=== PATIENT | male | born 1965 | race Caucasian/White ===

== ENCOUNTER → 2021-04-20 | Outpatient (CLI) | payer OTHER ==
--- NOTE | 2021-04-21 02:41 | MR ---
EXAMINATION TYPE: MR shoulder RT wo con DATE OF EXAM: 04/20/2021 COMPARISON: None HISTORY: Right shoulder pain with limited movement for 5 months Multiplanar multiecho imaging of the right shoulder without contrast. There is some hypertrophic spurring at the AC joint with subacromial impingement. There is shoulder j oint effusion. There is subdeltoid effusion. There is full-thickness tear of the supraspinatus tendon with partial retraction. There is fluid around the biceps tendon. Subscapularis tendon is intact. Th ere are some patchy edema in the anterior aspect of the humeral head. There is no fracture line. The glenoid kassandra appear intact. IMPRESSION: Large full-thickness tear of the supraspinatus tendon. Moderate shoulder joint effusion and subdeltoi d effusion consistent with synovitis. No fracture seen. Subchondral edema in the anterior humeral hea d.
== END | disposition home or self-care (01) ==
LOC: RADMRIMAIN 18:35
PROVIDERS: ATTEND Family Medicine
DX: M75.111 Incomplete rotator cuff tear or rupture of right shoulder, not specified as traumatic (principal); M25.411 Effusion, right shoulder

== ENCOUNTER → 2021-06-28 | Outpatient (CLI) | payer OTHER ==
--- NOTE | 2021-06-28 15:48 | XR ---
EXAMINATION TYPE: XR chest 2V DATE OF EXAM: 06/28/2021 COMPARISON: NONE TECHNIQUE: PA and lateral views submitted. HISTORY: Preop FINDINGS: The lungs are clear and there is no pneumothorax, pleural effusion, or focal pneumonia. Heart size normal. No overt failure. Biapical pleural thickening. Hypertrophic and degenerative changes of the s pine. IMPRESSION: 1. No acute process.
[2021-06-28 23:00] LABS: Basophils # (A) 0.05 X 10*3/uL (0.00-0.10); Basophils % (A) 0.6 %; Eosinophils # (A) 0.06 X 10*3/uL (0.04-0.35); Eosinophils % (A) 0.8 %; HGB 16.3 g/dL (13.0-17.0); Immature Grans, Automated 0.3 %; Lymphocytes # (A) 2.33 X 10*3/uL (0.90-5.00); Lymphocytes % (A) 29.2 %; MCH 30.5 pg (27.0-32.0); MCHC 32.6 g/dL (32.0-37.0); MCV 93.5 fL (80.0-97.0); Mean Platelet Volume 9.3 fL (9.5-12.2); Monocytes # (A) 0.63 X 10*3/uL (0.20-1.00); Monocytes % (A) 7.9 %; NRBC Per 100 WBC 0 /100 WBCS (0.0-0.0); Neutrophils % (A) 61.2 %; Platelet Count 328 X 10*3/uL (140-440); RBC 5.35 X 10*6/uL (4.40-5.60); RDW 11.9 % (11.5-14.5); WBC 7.99 X 10*3/uL (4.50-10.00)
[2021-06-28 23:05] LABS: African American GFR (CKD) 111.8 (60.0-200.0); Anion Gap 14.5 mmol/L (10.00-18.00); BUN/Creat Ratio 17.56 Ratio (12.00-20.00); Blood Urea Nitrogen 15.8 mg/dL (9.0-27.0); Calcium 9.6 mg/dL (8.7-10.3); Carbon Dioxide 23.5 mmol/L (20.0-27.5); Non-African American GFR(CKD) 96.5 (60.0-200.0); Potassium 4.1 mmol/L (3.5-5.5)
== END | disposition home or self-care (01) ==
LOC: LABPAT 14:50
PROVIDERS: ATTEND Orthopaedic Surgery
DX: Z01.812 Encounter for preprocedural laboratory examination (principal); M75.41 Impingement syndrome of right shoulder
CPT/HCPCS: 36415; 71046; 80048; 85025; 93005

== ENCOUNTER 2021-07-19 06:01 | Day surgery (SDC) | payer OTHER ==
[2021-07-15 15:24] VITALS: BMI 28.7
--- NOTE | 2021-07-18 13:04 | HP ---
HISTORY AND PHYSICAL CHIEF COMPLAINT: Right shoulder pain. 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 It has worsened recently. He is having pain with overhead use and at night. He has tried activity modifications along with oral steroids without much relief. He has also tried anti-inflammatories. He notes daily pain that limits him. PAST MEDICAL HISTORY: Significant for anxiety, depression, and arthritis. PAST SURGICAL HISTORY: Significant for kidney stone removal and tonsillectomy. CURRENT MEDICATIONS: Ibuprofen and Tylenol. He denies drug allergies. FAMILY HISTORY: Negative. SOCIAL HISTORY: Negative for current tobacco or alcohol use. REVIEW OF SYSTEMS: 16-point review of systems otherwise reviewed and is noncontributory. PHYSICAL EXAMINATION: On examination, the patient is approximately 5 foot 10, 200 pounds of endomorphic habitus. HEENT exam is nonfocal. NECK is supple. On examination of his right shoulder, he is tender about the anterior subacromial space. He has moderate subacromial crepitus. Active range of motion. Forward elevation 140 degrees, external rotation, arm at side 45 degrees, internal rotation to L2. Motor strength 4- over 5 for abduction and external rotation. Impingement test, Neer test, and Speed test are positive. His distal neurovascular exam appears intact in the right upper extremity. X-rays of the right shoulder obtained in the office show a cystic appearance of the greater tuberosity along with a type 2 acromion. MRI report right shoulder shows a full-thickness tear of the supraspinatus with some retraction. There is also fluid surrounding the biceps. IMPRESSION: 1. Right rotator cuff tear-symptomatic. 2. Right proximal bicipital tendinosis. RECOMMENDATIONS: I talked to the patient at length regarding his condition along with treatment options. At this point, he is quite symptomatic and limited because of pain despite previous conservative measures. After thorough discussion, he opts to proceed with surgery. We will plan to proceed with arthroscopic evaluation with probable rotator cuff repair, subacromial decompression, possible biceps tenotomy. Risks and benefits were discussed at length in layman's terms. We will likely perform that as an outpatient procedure. MMODL / IJN: [id number] /
[2021-07-19] MEDS ORDERED: SCOPOLAMINE 1 MG/72 HR PATCH TRANSDERM ONE (06:08)
[2021-07-19] MEDS ORDERED: MIDAZOLAM 2 MG/2 ML VIAL IV PRN (06:08)
[2021-07-19] MEDS ORDERED: LACTATED RINGERS 1,000 ML IV SCH (06:08)
[2021-07-19] MEDS ORDERED: DEXAMETHASONE SOD PHOSPHATE 4 MG/ML 1 ML VIAL IV ONE (06:08)
[2021-07-19] MEDS ORDERED: ONDANSETRON 4 MG/2 ML VIAL IVP ONE (06:08)
[2021-07-19] MEDS ORDERED: LACTATED RINGERS 1,000 ML IV ONE (06:26)
[2021-07-19] MEDS ORDERED: MIDAZOLAM 2 MG/2 ML VIAL IVP ONE ×2 (06:51→06:53)
[2021-07-19] MEDS ORDERED: HYDROmorphone 0.5 MG/0.5 ML SYRINGE IVP PRN (07:00)
[2021-07-19] MEDS ORDERED: ROPIVACAINE 5 MG/ML 30 ML VIAL ONE (07:40)
[2021-07-19] MEDS ORDERED: MIDAZOLAM 2 MG/2 ML VIAL ONE (07:40)
[2021-07-19] MEDS ORDERED: SUCCINYLCHOLINE CHLORIDE 100 MG/5 ML SYR IV ONE (07:40)
[2021-07-19] MEDS ORDERED: ePHEDrine 50 MG/ML 1 ML VIAL ONE (07:40)
[2021-07-19] MEDS ORDERED: DEXAMETHASONE SOD PHOSPHATE 4 MG/ML 1 ML VIAL ONE (07:40)
[2021-07-19] MEDS ORDERED: PROPOFOL 10 MG/ML 20 ML VIAL IV ONE (07:40)
[2021-07-19] MEDS ORDERED: fentaNYL (PF) 50 MCG/ML 2 ML AMP ONE (07:40)
[2021-07-19] MEDS ORDERED: PHENYLEPHRINE-0.9% NACL SYG 1,000 MCG/10 ML SYRINGE ONE (07:40)
--- NOTE | 2021-07-19 07:47 | P.ANPRN ---
Procedure Note - Anesthesia - Nerve Block Performed Right Interscalene Single Time Out Performed: Yes Date of Procedure: 07/19/21 Procedure Start Time: 06:50 Procedure Stop Time: 07:01 Location of Patient: PreOp Indication: Acute Post-Operative Pain, Requested by Surgeon Sedation Type: Sedate with meaningful contact maintained Preparation: Sterile Prep, Sterile Dressing Position: Sitting Catheter: None Needle Types: Facet Needle Gauge: 21 Ultrasound used to visualize needle placement: Yes Ultrasound used to observe medication spread: Yes Injectate: 0.5% Ropivacaine (see comment for volume) (30 ml + decadron 4 mg) Blood Aspirated: No Pain Paresthesia on Injection Noted: No Resistance on Injection: Normal Image Stored and Saved: Yes Events: Uneventful and Well Tolerated
--- NOTE | 2021-07-19 09:11 | P.OP ---
Date of Procedure: 07/19/21 Preoperative Diagnosis: Symptomatic right rotator cuff tear Postoperative Diagnosis: Right 4 cm rotator cuff tear, high-grade partial-thickness tear proximal biceps Procedure(s) Performed: Right shoulder arthroscopic subacromial decompression/biceps tenotomy/rotator cuff repair Implants: Arthrex 4.75 mm swivel lock anchor 2, 5.5 mm swivel lock anchor 2 Anesthesia: tomy SOUSA Surgeon: Cade Bravo [employer] Controls Specialist #1: Neil Leger Estimated Blood Loss (ml): 10 Pathology: none sent Condition: stable Disposition: PACU Indications for Procedure: The patient's 56-year-old male who presents with progressive right shoulder pain despite extensive conservative measures. Clinically and by MRI he was noted to have evidence of asymptomatic rotator cuff tear. A discussion of the risks and benefits of operative intervention versus continued conservative measures made with patient. He opted to proceed with surgery. Operative risks to include infection, neurovascular injury, development of blood clots, possible tendon rerupture, possible postoperative stiffness and need for subsequent procedures was discussed. Informed consent was obtained. Operative Findings: As below Description of Procedure: The patient was brought to the operating room, and after induction of general anesthesia was placed in a beachchair position. A preoperative interscalene block was placed for postoperative analgesia. I examined the right shoulder. There was no gross block to passive motion or gross glenohumeral instability. The right upper extremity was prepped and draped in normal fashion. The bony outlines the acromion, distal clavicle, and coracoid process were outlined with a skin marker. The glenohumeral joint was inflated with 50 mL of saline utilizing a spinal needle from posterior approach. A posterior portal was made through a 5 mm skin incision 1 cm medial and inferior to the posterior lateral border time. A blunt trocar was used to easily into the joint. Diagnostic arthroscopy was performed. An anterior portal was made just lateral to the coracoid process entering the joint above the subscapularis tendon. The subscapularis tendon appeared to be intact. Anterior labrum was intact. The inferior recess was inspected. The posterior labrum was intact. There was a high-grade partial-thickness tear of the long head of the biceps involving interarticular portion. It was elected to proceed with release at this point. This was released from the superior labrum with electrocautery and was allowed to retract to the bicipital groove. On inspection the rotator cuff, a full- thickness tear involving the supraspinatus and infraspinatus was noted with mild retraction. The posterior portion rotator cuff appeared to be intact. The arthroscope was placed in the subacromial space. A lateral portal was made 2 centimeters inferior to the anterior lateral border of the acromion. The rotator cuff was then mobilized with a traction suture. This was then easily brought back to the greater tuberosity. The soft tissue on the undersurface of the acromion was debrided with a motorized shaver and electrocautery clearly defining the anterior medial and lateral borders as well as the distal clavicle. An anterior inferior acromioplasty was performed with a motorized linda starting anterolateral, then extending this posteriorly, then extending this medially. I converted to a flat acromion and this was verified in the posterior and lateral viewing portals. The greater tuberosity was lightly decorticating with a shaver down to a bleeding bony surface. An accessory superior lateral portals made just off the lateral edge of the acromion for anchor placement. 2 anchors were then placed just off the articular surface with the appropriate starting awl. 4.75 mm anchors preloaded with #2 fiber tape were placed. Good purchase was obtained. These fiber tapes were then passed the rotator cuff with a scorpion suture passer. A lateral row was created crisscrossing these tapes. 5.5 mm swivel lock anchors x2 were placed laterally. Good purchase was obtained. Final arthroscopic view showed adequate compression at the footprint. The arthroscope was then removed. The portals were closed with simple 3-0 nylon sutures. A sterile dressing was applied in addition to an abductor brace. The patient was then awoken from general anesthesia and transferred to recovery room in good condition. Blood loss was estimated at 10 mL. No complications were incurred. Sponge and needle counts were correct in the case. Neil ERVIN assisted and the major components of the case to include arm positioning, anchor placement, and rotator cuff repair.
[2021-07-19 09:34] VITALS: TEMP 97
[2021-07-19 11:11] VITALS: RESP 18
[2021-07-19 11:21] VITALS: BP 119/79; PULSE 90
== END 2021-07-19 11:55 | disposition home or self-care (01) ==
LOC: OR 06:01
PROVIDERS: ATTEND Orthopaedic Surgery
DX: M75.111 Incomplete rotator cuff tear or rupture of right shoulder, not specified as traumatic (principal); Z79.1 Long term (current) use of non-steroidal anti-inflammatories (NSAID); G89.18 Other acute postprocedural pain
CPT/HCPCS: 29826; 29827; 29828; 64415; 76942; C1713 ×3; C1894; J2250; J1100; J0690; J2405; J3010; J2795; J2370; J0330; J2704

== ENCOUNTER → 2024-06-17 | Day surgery (SDC) | payer OTHER ==
[~2024-06-17] MED LIST: LACTATED RINGERS 1,000 ML IV SCH; PROPOFOL 10 MG/ML 20 ML VIAL IV ONE
[2024-06-17 07:57] VITALS: TEMP 97.5
[2024-06-17 08:11] LABS: Glucose,Whole Blood 71 mg/dL (70-110)
[2024-06-17] MEDS: IV FLUID CONTINUATION 1,000 ML IV ONE (08:11)
--- NOTE | 2024-06-17 08:41 | P.PCN ---
Date of Procedure: 06/17/24 Procedure(s) Performed: BRIEF HISTORY: Patient is a 59-year-old pleasant white male scheduled for an elective colonoscopy as a part of screening for colon cancer. PROCEDURE PERFORMED: Colonoscopy. PREOPERATIVE DIAGNOSIS: Screening for colon cancer. IV sedation per Anesthesia. PROCEDURE: After informed consent was obtained, the patient, was brought into the endoscopy unit. IV sedation was administered by Anesthesia under continuous monitoring. Digital rectal examination was normal. Initially the Olympus CF-160 flexible video colonoscope was then inserted in the rectum, gradually advanced into the cecum without any difficulty. Careful examination was performed as the scope was gradually being withdrawn. Ileocecal valve and the appendiceal orifice were visualized and appeared normal. Prep was excellent. Mucosa of the cecum, ascending colon, transverse colon, descending colon, sigmoid colon, and rectum appeared normal. Retroflexion was performed in the rectum and no lesions were seen. The patient tolerated the procedure well. IMPRESSION: Normal-appearing colon from rectum to cecum with no evidence of colorectal neoplasm. RECOMMENDATIONS: Findings of this examination were discussed with the patient as well as his family. He was advised to have repeat screening colonoscopy in 10 years..
[2024-06-17 08:59] VITALS: BP 117/69; PULSE 60; RESP 16
[2024-06-17 09:03] LABS: Glucose,Whole Blood 68 mg/dL (70-110)
[2024-06-17 09:23] LABS: Glucose,Whole Blood 85 mg/dL (70-110)
== END ==
LOC: ORWHC2ENDO 07:31
PROVIDERS: ATTEND Internal Medicine Gastroenterology
DX: Z12.11 Encounter for screening for malignant neoplasm of colon (principal)
CPT/HCPCS: J2704; G0121

== ENCOUNTER → 2024-07-30 | Outpatient (CLI) | payer OTHER ==
--- NOTE | 2024-07-30 12:23 | NM ---
EXAMINATION TYPE: NM stress cardiolite complete DATE OF EXAM: 07/30/2024 COMPARISON: NONE CLINICAL INDICATION: Male, 59 years old with history of Z82.49 FAMILY HX OF ISCHEMIA HEART DIS AND OT H DIS O; history of diabetes, hypercholesterolemia, family history. TECHNIQUE: After the intravenous administration of 9.77 mCi Tc 99m Sestamibi - Rest images obtained 45 minutes post injection. The patient exercised using a CHELSEA protocol and 1 minute prior to peak exercise was injected with 25.2 mCi Tc 99m Sestamibi - Stress images obtained 5 minutes post injectio n. FINDINGS: Targeted heart rate (139 BPM) was achieved during performance of the study (total 155 bpm achieved). Total exercise time 9 minutes. Review of stress and rest SPECT images demonstrates no distinct perfusion abnormality. Gated analysi s shows normal wall motion with an estimated left ventricular ejection fraction of 64 %. TID is calc ulated at 0.83, within normal limits. IMPRESSION: No scintigraphic evidence for reversible ischemia [facility], , 07/30/2024 12:20 PM
--- NOTE | 2024-07-30 12:53 | CA ---
Exercise Nuclear Stress Test Report Name: Iam Gregory Exam Date: 07/30/2024 09:26 Exam Location: [place] Stress Ht (in): 70 Wt (lb): 180 BSA: 2.00 Ordering Phys: Farshad Machado MD Referring Phys: ANTONY, Technologist: Charles Vizcarra Age: 59 Gender: M : 1965 Procedure CPT: Indications: Z82.49 FAMILY HX OF ISCHEM HEART DIS AND OTH DIS O ICD-10 Codes: Patient History: Medications: METFORMIN, FARXEGA, ATORVASTATIN, EZETIMIBE Meds past 24 hrs: Pretest Chest Pain: STRESS TEST Sukhwinder Protocol Exercise Duration (min:sec): 09:[address] Depressions (mm): Angina Score: Varghese Score: Resting HR (bpm): 69 Peak HR (bpm): 154 Resting BP (mmHg): 125 / 91 Peak BP (mmHg): 169 / 77 MPHR: 163 Target HR: 139 % MPHR: 94 METS: 10.3 Total Dose: Peak Dose: Atropine: Double Product: 01408 BP Response: Stress Termination: MAX EXERTION/TARGET HR Stress Symptoms: NO SYMPTOMS Stress Summary: ECG ANALYSIS Resting ECG: Stress ECG: CONCLUSIONS Reason: Diabetes dyslipidemia family history of CAD Good exercise capacity on a Sukhwinder protocol for 9 minutes Normal heart rate and blood pressure response No ECG evidence for ischemia or arrhythmia Dr. Wilner Arnett MD (Electronically Signed) Final Date: 30 Jul 2024 12:52
== END | disposition home or self-care (01) ==
LOC: RADNMMAIN 07:43
PROVIDERS: ATTEND Internal Medicine
DX: E11.9 Type 2 diabetes mellitus without complications (principal); E78.5 Hyperlipidemia, unspecified; Z82.49 Family history of ischemic heart disease and other diseases of the circulatory system
CPT/HCPCS: 93017; 78452; A9500